=== PATIENT | female | born 1975 | race Caucasian/White ===

== ENCOUNTER 2020-09-21 10:41 | Inpatient (IN) | payer BC ==
[~2020-09-21] VITALS: Ht 162.6 cm; Wt 99.7 kg
--- NOTE | 2020-09-21 10:54 | PHYS DOC ---
Past Medical History Past Medical History Hypertension and hypothyroidism Past Surgical History: No Surgical History Smoking Status: Never Smoker Alcohol Use: Rarely Drug Use: None General Adult EDM: Chief Complaint: NEURO SYMPTOMS/DEFICITS HPI: HPI: This is a pleasant 45-year-old female who presents emergency department today with left sided weakness which started about 5 months ago. It has been progressively worse. Over the past 24 hours she has had worsening clumsiness. Location brain. Duration constant. No alleviating or exacerbating factors. Not associated with speech disturbances. She denies any fevers or chills. She denies chest pain or shortness of breath. She denies vision changes. Review of systems negative for chest pain shortness of breath vomiting fevers chills. All other review of systems negative ED course/MDM: 45-year-old female with chronic symptoms of focal neurologic deficit. Imaging ordered. EKG obtained. tPA not indicated based on timeframe. Last known well greater than [address] head unremarkable for acute findings. CT angiogram shows no acute intracranial findings. Suspected atherosclerotic plaque of the proximal right subclavian artery. No LVO. CBC chemistry and urine analysis unremarkable for acute findings. Will admit the patient for neurology consultation and further evaluation and care. Heart Score: C/O Chest Pain: No Risk Factors: Risk Factors: DM, Current or recent (<one month) smoker, HTN, HLP, family history of CAD, obesity. Risk Scores: Score 0 - 3: 2.5% MACE over next 6 weeks - Discharge Home Score 4 - 6: 20.3% MACE over next 6 weeks - Admit for Clinical Observation Score 7 - 10: 72.7% MACE over next 6 weeks - Early Invasive Strategies Physical Exam: PE: Constitutional: Well developed, well nourished, no acute distress, non-toxic appearance. [] HENT: Normocephalic, atraumatic, bilateral external ears normal, oropharynx moist, no oral exudates, nose normal. [] Eyes: PERRLA, EOMI, conjunctiva normal, no discharge. [] Neck: Normal range of motion, no tenderness, supple, no stridor. [] Cardiovascular:Heart rate regular rhythm, no murmur [] Lungs & Thorax: Bilateral breath sounds clear to auscultation [] Abdomen: Bowel sounds normal, soft, no tenderness, no masses, no pulsatile masses. [] Skin: Warm, dry, no erythema, no rash. [] Back: No tenderness, no CVA tenderness. [] Extremities: No tenderness, no cyanosis, no clubbing, ROM intact, no edema. [] Neurologic: Mental status: Awake oriented and alert x3 Cranial nerves: Extraocular movements intact, eyebrows eliana bilaterally, smile symmetric, uvula elevation nl, shoulder shrug intact bilaterally, tongue protrusion normal. Symmetric facial smile. Clear speech. Normal aezynl-ly-hesl. Sensation: equal and normal in all extremities Strength: 4 out of 5 strength in the left upper and left lower extremity. 5 out of 5 strength in the right upper and right lower extremity. Patient does not have drift in the upper extremities but is appreciably weak on exam. More in the extension and flexion at the elbow. The lower extremity on the left has drift and touches the bed. Psychologic: Affect normal, judgement normal, mood normal. [] EKG: EKG: EKG reviewed by myself shows sinus rhythm with a regular rate. ST segments congruent. Not suggestive of acute ischemia. [] Radiology/Procedures: Radiology/Procedures: [] Course & Med Decision Making: Course & Med Decision Making Pertinent Labs and Imaging studies reviewed. (See chart for details) [] Dragon Disclaimer: Dragon Disclaimer: This electronic medical record was generated, in whole or in part, using a voice recognition dictation system. Departure Departure Impression: Primary Impression: Left-sided weakness Disposition: ADMITTED INPATIENT Admitting Physician: DAVID Condition: STABLE NIHSS Stroke Scale NIH Stroke Scale: NIH Stroke Scale Response (Comments) Value Level of Consciousness: 0 Alert/Responsive 0 LOC Questions: 0 Answers both correctly 0 LOC Commands: 0 Performs both tasks 0 Best Gaze: 0 Normal 0 Visual: 0 No visual loss 0 Facial Palsy: 0 Normal, symmetrical 0 Motor - Left Arm 0 No drift 0 Motor - Right Arm 0 No drift 0 Motor - Left Leg 2 Some effort 2 Motor: Right Leg 0 No drift 0 Limb Ataxia: 0 Absent 0 Sensory: 0 No loss 0 Best Language: 0 Normal 0 Dysathria: 0 Normal 0 Extinction and Inattention: 0 Normal (At approximately 1045am) 0 Total 2 ANGELES GARDUNO MD September 21, 2020 10:53
--- NOTE | 2020-09-21 11:25 | EKG ---
[facility] [address] [place] [address] Test Date: 2020-09-21 Test Time: 11:10:20 Pat Name: FARIBA ROTH Department: Room: Gender: F [employer]: : 1975 Requested By: ANGELES GARDUNO Order Number: [id number] Reading MD: Measurements Intervals [place] Rate: 70 P: -2 SC: 142 QRS: 51 QRSD: 112 T: 12 QT: 398 QTc: 433 Interpretive Statements SINUS RHYTHM NORMAL ECG RI6.01 No previous ECG available for comparison
[2020-09-21 11:40] LABS: BASO % 1 % (0-3); EOS # 0.1 x10^3/uL (0.0-0.7); EOS % 1 % (0-3); HEMATOCRIT 36.9 % (36.0-47.0); HEMOGLOBIN 12.4 g/dL (12.0-15.5); LYMPH # 1.1 x10^3/uL (1.0-4.8); LYMPH % 17 % (24-48); MEAN CORPUSCULAR HEMOGLOBIN 30 pg (25-35); MEAN CORPUSCULAR HGB CONC 34 g/dL (31-37); MEAN CORPUSCULAR VOLUME 89 fL (79-100); MONO # 0.4 x10^3/uL (0.0-1.1); MONO % 7 % (0-9); NEUT % 75 % (31-73); PLATELET COUNT 269 x10^3/uL (140-400); RED BLOOD COUNT 4.15 x10^6/uL (3.50-5.40); RED CELL DISTRIBUTION WIDTH 13.4 % (11.5-14.5); WHITE BLOOD COUNT 6.6 x10^3/uL (4.0-11.0)
[2020-09-21 11:47] LABS: CALCIUM 8.4 mg/dL (8.5-10.1); CREATININE 0.7 mg/dL (0.6-1.0); GFR 90.5; POTASSIUM 4.5 mmol/L (3.5-5.1)
[2020-09-21 11:53] LABS: ALBUMIN 3.6 g/dL (3.4-5.0); ALBUMIN/GLOBULIN RATIO 1.3 (1.0-1.7); TOTAL BILIRUBIN 0.2 mg/dL (0.2-1.0); TOTAL PROTEIN 6.3 g/dL (6.4-8.2)
[2020-09-21] MEDS ORDERED: IOHEXOL 350 MG/ML 100 ML VIAL. IV ONE (12:15)
[2020-09-21] MEDS ORDERED: CONTRAST GIVEN. MC PRN (12:15)
--- NOTE | 2020-09-21 12:28 | RAD ---
Exam Date: 09/21/2020 11:[address] HEAD/BRAIN WO Indication: Reason: WEAKNESS / Spl. Instructions: / History: TECHNIQUE: Head CT was performed without intravenous contrast. One or more of the following dose re duction techniques were utilized: *Automated exposure control (AEC) *Adjustment of mA and/or kV according to patient size *Use of iterative reconstruction technique *CT scan done according to ALARA, or ALARA/IMAGE GENTLY FINDINGS: The ventricles and sulci are normal for the patient's stated age. There is no evidence of acute int racranial hemorrhage, extra-axial collection, mass effect, midline shift, or acute territorial infarc t. No lesion of the skull base or the calvarium is seen. The visualized paranasal sinuses, mastoid ai r cells and orbits are normal in appearance. IMPRESSION: No evidence for acute intracranial abnormality. Electronically signed by: Josef Cleaning MD (09/21/2020 12:26 PM) [facility]
--- NOTE | 2020-09-21 12:42 | RAD ---
EXAM: CT angiogram of the head and neck with intravenous contrast. HISTORY: Weakness. TECHNIQUE: Computed tomographic images the head and neck were obtained following the administration o f contrast. 3-dimensional images were obtained. *One or more of the following individualized dose reduction techniques were utilized for this examina tion: 1. Automated exposure control. 2. Adjustment of the mA and/or kV according to patient size. 3. Use of iterative reconstruction technique. COMPARISON: Noncontrast head CT obtained on the same date. FINDINGS: The aortic arch is normal in caliber. There is a standard arch branching pattern. There is suspected noncalcified atherosclerotic plaque at the origin of the right subclavian artery, resulting in 50-69 percent stenosis proximal to the origin of the right vertebral artery. There is also noncal cified atherosclerotic plaque involving the carotid bifurcations, with less than 50 percent stenosis. The vertebral arteries are widely patent and codominant. The basilar artery is widely patent. The in ternal carotid arteries are widely patent. The anterior communicating artery is patent. The posterior communicating arteries are likely developmentally absent or hypoplastic. There is no aneurysm or vas cular malformation. There is no suspicious enhancing lesion. There is no mass effect or midline shift. There is no hydrocephalus. The sarah-white matter differenti al pattern is intact. The orbits are unremarkable. There is a tiny right maxillary sinus mucous reten tion cyst and minimal maxillary sinus mucosal thickening. The mastoid air cells are clear. There are degenerative changes involving the cervical spine. This results in mild right foraminal stenosis at C 4-C5. There are prominent right paratracheal lymph nodes, partially included on the [id number]. Th power are likely physiologic or reactive. IMPRESSION: 1. No acute intracranial finding. Note is made that MRI is more sensitive for acute infarction. 2. Suspected atherosclerotic plaque resulting in 50-69 percent stenosis of the proximal right subclav dominique artery. No additional hemodynamically significant stenosis is seen involving the neck or intracra nial arteries. PQRS Compliance Statement - Stenosis calculations for CT, MR and conventional angiography are based u prince measurement of the distal ICA diameter in accordance with the NASCET methodology. Stenosis calcu lations for carotid ultrasound studies are derived from validated velocity criteria which are known t o correlate with the NASCET methodology. Electronically signed by: Terra Sharma MD (09/21/2020 12:39 PM) [id number]
[2020-09-21 13:08] LABS: BILIRUBIN,URINE NEGATIVE (NEG); CLARITY,URINE CLEAR; COLOR,URINE YELLOW; NITRITE,URINE NEGATIVE (NEG); PH,URINE 6.5 (<5.0-8.0); PROTEIN,URINE NEGATIVE (NEG-TRACE); UROBILINOGEN,URINE 0.2 mg/dL (0.2 mg/dL)
[2020-09-21 13:23] LABS: BACTERIA,URINE 0 /HPF (0-FEW); RBC,URINE 0 /HPF (0-2); WBC,URINE 0 /HPF (0-4)
--- NOTE | 2020-09-21 14:28 | PDOC1 ---
History and Physical Date of Admission Date of Admission DATE: 09/21/20 TIME: 14:28 Identification/Chief Complaint Chief Complaint left sided weakness History of Present Illness History of Present Illness Works as an [employer], HER FRIENDS insisted that she see a neurologist due to following symptoms for several weeks seen in ER with hypertension, left sided weakness, PROGRESSIVE symptoms, now having difficulty climbing steps Imaging ordered. EKG obtained. tPA not indicated based on timeframe. Last known well greater than 24 hours. No acute intracranial finding. Note is made that MRI is more sensitive Past Medical History Past Medical History Past Medical History Past Medical History Past Medical History Hypertension and hypothyroidism, obesity Past Surgical History: No Surgical History Smoking Status: Never Smoker Alcohol Use: Rarely Drug Use: None fhx obesity Cardiovascular: HTN Pulmonary: No pertinent hx Heme/Onc: No pertinent hx Hepatobiliary: No pertinent hx Psych: No pertinent hx, Anxiety Renal/: No pertinent hx Endocrine: No pertinent hx Dermatology: No pertinent hx Family History Family History: Hypertension Social History Smoke: No ALCOHOL: rare Drugs: None Current Medications Current Medications Current Medications Iohexol (Omnipaque 350 Mg/ml) 75 ml 1X ONCE IV Last administered on 09/21/20at 12:11; Start 09/21/20 at 12:15; Stop 09/21/20 at 12:16; Status DC Info (CONTRAST GIVEN -- Rx MONITORING) 1 each PRN DAILY PRN MC SEE COMMENTS; Start 09/21/20 at 12:15; Stop 09/23/20 at 12:14 Allergies Allergies: Coded Allergies: No Known Drug Allergies (Unverified , 09/21/20) ROS Review of System 14 pt ros otherwise neg General: YES: Fatigue; No: Chills, Night Sweats, Malaise, Appetite, Other PSYCHOLOGICAL ROS: No: Anxiety, Behavioral Disorder, Concentration difficultie, Decreased libido, Depression, Disorientation, Hallucinations, Hostility, Irritablity, Memory difficulties, Mood Swings, Obsessive thoughts, Physical abuse, Sexual abuse, Sleep disturbances, Suicidal ideation, Other Eyes: No Blurry vision, No Decreased vision, No Double vision, No Dry eyes, No Excessive tearing, No Eye Pain, No Itchy Eyes, No Loss of vision, No P hotophobia, No Scotomata, No Uses contacts, No Uses glasses, No Other HEENT: No: Heacaches, Visual Changes, Hearing change, Nasal congestion, Nasal discharge, Oral lesions, Sinus pain, Sore Throat, Epistaxis, Sneezing, Snoring, Tinnitus, Vertigo, Vocal changes, Other ALLERGY AND IMMUNOLOGY: No: Hives, Insect Bite Sensitivity, Itchy/Watery Eyes, Nasal Congestion, Post Nasal Drip, Seasonal Allergies, Other Hematological and Lymphatic: No: Bleeding Problems, Blood Clots, Blood Transfusions, Brusing, Night Sweats, Pallor, Swollen Lymph Nodes, Other ENDOCRINE: No: Breast Changes, Galactorrhea, Hair Pattern Changes, Hot Flashes, Malaise/lethargy, Mood Swings, Palpitations, Polydipsia/polyuria, Skin Changes, Temperature Intolerance, Unexpected Weight Changes, Other Breast: No New/Changing Breast Lumps, No Nipple changes, No Nipple discharge, No Other Respiratory: No: Cough, Hemoptysis, Orthopnea, Pleuritic Pain, Shortness of breath, SOB with excertion, Sputum Changes, Stridor, Tachypnea, Wheezing, Other Cardiovascular: No Chest Pain, No Palpitations, No Orthopnea, No Paroxysmal Noc. Dyspnea, No Edema, No Lt Headedness, No Other Gastrointestinal: No Nausea, No Vomiting, No Abdominal Pain, No Diarrhea, No Constipation, No Melena, No Hematochezia, No Other Genitourinary: No Dysuria, No Frequency, No Incontinence, No Hematuria, No Retention, No Discharge, No Urgency, No Pain, No Flank Pain, No Other, No , No , No , No , No , No , No Musculoskeletal: Yes Gait Disturbance, Yes Joint Stiffness, Yes Muscular Weakness; No Joint Pain, No Joint Swelling, No Muscle Pain, No Pain In:, No Swelling In:, No Other Neurological: Yes Gait Disturbance, Yes Impaired Coord/balance, Yes N umbness/Tingling, Yes Weakness Skin: No Dry Skin, No Eczema, No Hair Changes, No Lumps, No Mole Changes, No Mottling, No Nail Changes, No Pruritus, No Rash, No Skin Lesion Changes, No Other, No Acne Physical Exam General: Alert, Oriented X3, Cooperative, No acute distress HEENT: Atraumatic, PERRLA, EOMI, Mucous membr. moist/pink Lungs: Clear to auscultation, Normal air movement Heart: S1S2, RRR, no gallops, no murmurs, no jug vein distention Cardiovascular: S1, S2 Breasts: Not examined Abdomen: Normal bowel sounds, Soft, No tenderness, No masses Rectal Exam: not examined, deferred PELVIC: Examination not indicated Extremities: No cyanosis, No edema Skin: No significant lesion Neuro: Normal speech, Sensation intact, Cranial nerves 3-12 NL Psych/Mental Status: Mental status NL, Mood NL Vitals Vitals Vital Signs Date Time Temp Pulse Resp B/P (MAP) Pulse Ox O2 Delivery O2 Flow Rate FiO2 09/21/20 10:44 98.9 81 18 189/94 (125) 98 Room Air 98.9 Labs Labs Laboratory Tests Test 09/21/20 11:15 09/21/20 12:48 09/21/20 13:01 White Blood Count 6.6 x10^3/uL (4.0-11.0) Red Blood Count 4.15 x10^6/uL (3.50-5.40) Hemoglobin 12.4 g/dL (12.0-15.5) Hematocrit 36.9 % (36.0-47.0) Mean Corpuscular Volume 89 fL (79-100) Mean Corpuscular Hemoglobin 30 pg (25-35) Mean Corpuscular Hemoglobin Concent 34 g/dL (31-37) Red Cell Distribution Width 13.4 % (11.5-14.5) Platelet Count 269 x10^3/uL (140-400) Neutrophils (%) (Auto) 75 % (31-73) Lymphocytes (%) (Auto) 17 % (24-48) Monocytes (%) (Auto) 7 % (0-9) Eosinophils (%) (Auto) 1 % (0-3) Basophils (%) (Auto) 1 % (0-3) Neutrophils # (Auto) 5.0 x10^3/uL (1.8-7.7) Lymphocytes # (Auto) 1.1 x10^3/uL (1.0-4.8) Monocytes # (Auto) 0.4 x10^3/uL (0.0-1.1) Eosinophils # (Auto) 0.1 x10^3/uL (0.0-0.7) Basophils # (Auto) 0.0 x10^3/uL (0.0-0.2) Sodium Level 143 mmol/L (136-145) Potassium Level 4.5 mmol/L (3.5-5.1) Chloride Level 108 mmol/L (98-107) Carbon Dioxide Level 27 mmol/L (21-32) Anion Gap 8 (6-14) Blood Urea Nitrogen 14 mg/dL (7-20) Creatinine 0.7 mg/dL (0.6-1.0) Estimated GFR (Cockcroft-Gault) 90.5 BUN/Creatinine Ratio 20 (6-20) Glucose Level 97 mg/dL (70-99) Calcium Level 8.4 mg/dL (8.5-10.1) Total Bilirubin 0.2 mg/dL (0.2-1.0) Aspartate Amino Transf (AST/SGOT) 16 U/L (15-37) Alanine Aminotransferase (ALT/SGPT) 30 U/L (14-59) Alkaline Phosphatase 94 U/L (46-116) Troponin I Quantitative < 0.017 ng/mL (0.000-0.055) Total Protein 6.3 g/dL (6.4-8.2) Albumin 3.6 g/dL (3.4-5.0) Albumin/Globulin Ratio 1.3 (1.0-1.7) Lipase 96 U/L (73-393) Urine Collection Type Unknown Urine Color Yellow Urine Clarity Clear Urine pH 6.5 (<5.0-8.0) Urine Specific [place] >=1.030 (1.000-1.030) Urine Protein Negative mg/dL (NEG-TRACE) Urine Glucose (UA) Negative mg/dL (NEG) Urine Ketones (Stick) Negative mg/dL (NEG) Urine Blood Negative (NEG) Urine Nitrite Negative (NEG) Urine Bilirubin Negative (NEG) Urine Urobilinogen Dipstick 0.2 mg/dL (0.2 mg/dL) Urine Leukocyte Esterase Negative (NEG) Urine RBC 0 /HPF (0-2) Urine WBC 0 /HPF (0-4) Urine Squamous Epithelial Cells Few /LPF Urine Bacteria 0 /HPF (0-FEW) Bedside Urine HCG, Qualitative Hcg negative (Negative) Laboratory Tests Test 09/21/20 11:15 09/21/20 12:48 09/21/20 13:01 White Blood Count 6.6 x10^3/uL (4.0-11.0) Red Blood Count 4.15 x10^6/uL (3.50-5.40) Hemoglobin 12.4 g/dL (12.0-15.5) Hematocrit 36.9 % (36.0-47.0) Mean Corpuscular Volume 89 fL (79-100) Mean Corpuscular Hemoglobin 30 pg (25-35) Mean Corpuscular Hemoglobin Concent 34 g/dL (31-37) Red Cell Distribution Width 13.4 % (11.5-14.5) Platelet Count 269 x10^3/uL (140-400) Neutrophils (%) (Auto) 75 % (31-73) Lymphocytes (%) (Auto) 17 % (24-48) Monocytes (%) (Auto) 7 % (0-9) Eosinophils (%) (Auto) 1 % (0-3) Basophils (%) (Auto) 1 % (0-3) Neutrophils # (Auto) 5.0 x10^3/uL (1.8-7.7) Lymphocytes # (Auto) 1.1 x10^3/uL (1.0-4.8) Monocytes # (Auto) 0.4 x10^3/uL (0.0-1.1) Eosinophils # (Auto) 0.1 x10^3/uL (0.0-0.7) Basophils # (Auto) 0.0 x10^3/uL (0.0-0.2) Sodium Level 143 mmol/L (136-145) Potassium Level 4.5 mmol/L (3.5-5.1) Chloride Level 108 mmol/L (98-107) Carbon Dioxide Level 27 mmol/L (21-32) Anion Gap 8 (6-14) Blood Urea Nitrogen 14 mg/dL (7-20) Creatinine 0.7 mg/dL (0.6-1.0) Estimated GFR (Cockcroft-Gault) 90.5 BUN/Creatinine Ratio 20 (6-20) Glucose Level 97 mg/dL (70-99) Calcium Level 8.4 mg/dL (8.5-10.1) Total Bilirubin 0.2 mg/dL (0.2-1.0) Aspartate Amino Transf (AST/SGOT) 16 U/L (15-37) Alanine Aminotransferase (ALT/SGPT) 30 U/L (14-59) Alkaline Phosphatase 94 U/L (46-116) Troponin I Quantitative < 0.017 ng/mL (0.000-0.055) Total Protein 6.3 g/dL (6.4-8.2) Albumin 3.6 g/dL (3.4-5.0) Albumin/Globulin Ratio 1.3 (1.0-1.7) Lipase 96 U/L (73-393) Urine Collection Type Unknown Urine Color Yellow Urine Clarity Clear Urine pH 6.5 (<5.0-8.0) Urine Specific [place] >=1.030 (1.000-1.030) Urine Protein Negative mg/dL (NEG-TRACE) Urine Glucose (UA) Negative mg/dL (NEG) Urine Ketones (Stick) Negative mg/dL (NEG) Urine Blood Negative (NEG) Urine Nitrite Negative (NEG) Urine Bilirubin Negative (NEG) Urine Urobilinogen Dipstick 0.2 mg/dL (0.2 mg/dL) Urine Leukocyte Esterase Negative (NEG) Urine RBC 0 /HPF (0-2) Urine WBC 0 /HPF (0-4) Urine Squamous Epithelial Cells Few /LPF Urine Bacteria 0 /HPF (0-FEW) Bedside Urine HCG, Qualitative Hcg negative (Negative) Images Images PATIENT: FARIBA ROTH CACCOUNT: [id number] : 1975 LOCATION: ER AGE: 45 SEX: F EXAM STATUS: REG ER ORD. PHYSICIAN: ANGELES GARDUNO MD REASON: WEAKNESS PROCEDURE: CT ANGIOGRAPHY HEAD AND NECK EXAM: CT angiogram of the head and neck with intravenous contrast. HISTORY: Weakness. TECHNIQUE: Computed tomographic images the head and neck were obtained following the administration of contrast. 3-dimensional images were obtained. *One or more of the following individualized dose reduction techniques were utilized for this examination: 1. Automated exposure control. 2. Adjustment of the mA and/or kV according to patient size. 3. Use of iterative reconstruction technique. COMPARISON: Noncontrast head CT obtained on the same date. FINDINGS: The aortic arch is normal in caliber. There is a standard arch branching pattern. There is suspected noncalcified atherosclerotic plaque at the origin of the right subclavian artery, resulting in 50-69 percent stenosis proximal to the origin of the right vertebral artery. There is also noncalcified atherosclerotic plaque involving the carotid bifurcations, with less than 50 percent stenosis. The vertebral arteries are widely patent and codominant. The basilar artery is widely patent. The internal carotid arteries are widely patent. The anterior communicating artery is patent. The posterior communicating arteries are likely developmentally absent or hypoplastic. There is no aneurysm or vascular malformation. There is no suspicious enhancing lesion. There is no mass effect or midline shift. There is no hydrocephalus. The sarah- white matter differential pattern is intact. The orbits are unremarkable. There is a tiny right maxillary sinus mucous retention cyst and minimal maxillary sinus mucosal thickening. The mastoid air cells are clear. There are degenerative changes involving the cervical spine. This results in mild right foraminal stenosis at C4-C5. There are prominent right paratracheal lymph nodes, partially included on the [id number]. These are likely physiologic or reactive. IMPRESSION: 1. No acute intracranial finding. Note is made that MRI is more sensitive for acute infarction. 2. Suspected atherosclerotic plaque resulting in 50-69 percent stenosis of the proximal right subclavian artery. No additional hemodynamically significant sten osis is seen involving the neck or intracranial arteries. PQRS Compliance Statement - Stenosis calculations for CT, MR and conventional angiography are based upon measurement of the distal ICA diameter in accordance with the NASCET methodology. Stenosis calculations for carotid ultrasound studies are derived from validated velocity criteria which are known to correlate with the NASCET methodology. Electronically signed by: Terra Marin MD (09/21/2020 12:39 PM) [id number] DICTATED and SIGNED BY: TERRA MARIN MD DATE: 09/21/20 [id number] VTE Prophylaxis Ordered VTE Prophylaxis Devices: Yes VTE Pharmacological Prophylaxi: Yes Assessment/Plan Assessment/Plan MPRESSION: left side weakness , concerning for CVA , vs conversion reaction No acute intracranial finding. Note is made that MRI is more sensitive for acute infarction. Suspected atherosclerotic plaque resulting in 50-69 percent stenosis of the proximal right subclavian artery. No additional hemodynamically significant stenosis is seen involving the neck or intracranial arteries. hypertension PLAN ADMIT NEUROCHECKS Q 4 HRS CVC BED Neurology consult MRI HEAD DVT PROPHYLAXIS PT/OT BEGIN NORVASC 5 MG PO DAILY FLP d/w er DR Justifications for Admission Other Justification NATHALIA HUNTER MD September 21, 2020 14:28
--- NOTE | 2020-09-21 16:29 | PDOC2 ---
NEUROLOGY CONSULT Date of Service DOS: DATE: 09/21/20 TIME: 16:23 Reason for Consult Reason for Consult: Left-sided weakness Referring Physician Referring Physician: Dr. Mathur Source Source: Caregiver (), Chart review, Patient History of Present Illness History of Present Illness The patient is a 45-year-old right-handed female who complains of left-sided weakness which started about 5 months ago. She initially noticed some extension of the fourth and fifth digits of the left hand. She also had trouble with walking using the left leg. This has progressed to increased stiffness of the left-sided extremities. The face is not involved. Symptoms grew worse in the last couple days, so she decided to come to the emergency department. She has an appointment with a [facility] neurologist scheduled for October. There is no history of stroke, seizure, or head injury. She is under some stress, she just completed nursing school. 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 Full 14-point review of systems is negative. Physical Exam Physical Examination General: Well-developed, well-nourished white female in no acute distress HEENT: Normocephalic andatraumatic. Temporal arteriespulsatile and nontender. Neck: Supple without bruit, no meningismus Musculoskeletal: Stability:see neurologic. Gait exam:see neurologic. Tone:see neurologic.Str ength:see neurologic. Neurological: Mental Status:intact, orientation, memory, attention span/concentration, language, fund of knowledge normal. Cranial Nerves:Pupils equal and reactive to light, extraocular movements areintact, visual li are full to confrontation. Facial sensation is normal. There is no facial asymmetry. Vestibulo-ocular reflex is intact. Palate elevates and tongue protrudes in midline. All other cranial related problems are negative except as mentioned before.Reflexes:2+ and symmetric with flexor plantar responses. Motor:5/5 strength with normal bulk. There is some increased tone in the left arm and l eg, but with distraction, the tone becomes normal. There is no abnormal posturing like dystonia. Coordination:Finger-nose finger and [id number] testing are normal. Rapid alternating movements and fine finger movements are intact. Gait:Takes slow, wide-based steps. Sensory:Normal pinprick, vibration, light touch, proprioception. Vitals VITALS Vital Signs Date Time Temp Pulse Resp B/P (MAP) Pulse Ox O2 Delivery O2 Flow Rate FiO2 09/21/20 10:44 98.9 81 18 189/94 (125) 98 Room Air 98.9 Labs Labs Laboratory Tests Test 09/21/20 11:15 09/21/20 12:48 09/21/20 13:01 White Blood Count 6.6 x10^3/uL (4.0-11.0) Red Blood Count 4.15 x10^6/uL (3.50-5.40) Hemoglobin 12.4 g/dL (12.0-15.5) Hematocrit 36.9 % (36.0-47.0) Mean Corpuscular Volume 89 fL (79-100) Mean Corpuscular Hemoglobin 30 pg (25-35) Mean Corpuscular Hemoglobin Concent 34 g/dL (31-37) Red Cell Distribution Width 13.4 % (11.5-14.5) Platelet Count 269 x10^3/uL (140-400) Neutrophils (%) (Auto) 75 % (31-73) Lymphocytes (%) (Auto) 17 % (24-48) Monocytes (%) (Auto) 7 % (0-9) Eosinophils (%) (Auto) 1 % (0-3) Basophils (%) (Auto) 1 % (0-3) Neutrophils # (Auto) 5.0 x10^3/uL (1.8-7.7) Lymphocytes # (Auto) 1.1 x10^3/uL (1.0-4.8) Monocytes # (Auto) 0.4 x10^3/uL (0.0-1.1) Eosinophils # (Auto) 0.1 x10^3/uL (0.0-0.7) Basophils # (Auto) 0.0 x10^3/uL (0.0-0.2) Sodium Level 143 mmol/L (136-145) Potassium Level 4.5 mmol/L (3.5-5.1) Chloride Level 108 mmol/L (98-107) Carbon Dioxide Level 27 mmol/L (21-32) Anion Gap 8 (6-14) Blood Urea Nitrogen 14 mg/dL (7-20) Creatinine 0.7 mg/dL (0.6-1.0) Estimated GFR (Cockcroft-Gault) 90.5 BUN/Creatinine Ratio 20 (6-20) Glucose Level 97 mg/dL (70-99) Calcium Level 8.4 mg/dL (8.5-10.1) Total Bilirubin 0.2 mg/dL (0.2-1.0) Aspartate Amino Transf (AST/SGOT) 16 U/L (15-37) Alanine Aminotransferase (ALT/SGPT) 30 U/L (14-59) Alkaline Phosphatase 94 U/L (46-116) Troponin I Quantitative < 0.017 ng/mL (0.000-0.055) Total Protein 6.3 g/dL (6.4-8.2) Albumin 3.6 g/dL (3.4-5.0) Albumin/Globulin Ratio 1.3 (1.0-1.7) Lipase 96 U/L (73-393) Urine Collection Type Unknown Urine Color Yellow Urine Clarity Clear Urine pH 6.5 (<5.0-8.0) Urine Specific [place] >=1.030 (1.000-1.030) Urine Protein Negative mg/dL (NEG-TRACE) Urine Glucose (UA) Negative mg/dL (NEG) Urine Ketones (Stick) Negative mg/dL (NEG) Urine Blood Negative (NEG) Urine Nitrite Negative (NEG) Urine Bilirubin Negative (NEG) Urine Urobilinogen Dipstick 0.2 mg/dL (0.2 mg/dL) Urine Leukocyte Esterase Negative (NEG) Urine RBC 0 /HPF (0-2) Urine WBC 0 /HPF (0-4) Urine Squamous Epithelial Cells Few /LPF Urine Bacteria 0 /HPF (0-FEW) Bedside Urine HCG, Qualitative Hcg negative (Negative) Laboratory Tests Test 09/21/20 11:15 09/21/20 12:48 09/21/20 13:01 White Blood Count 6.6 x10^3/uL (4.0-11.0) Red Blood Count 4.15 x10^6/uL (3.50-5.40) Hemoglobin 12.4 g/dL (12.0-15.5) Hematocrit 36.9 % (36.0-47.0) Mean Corpuscular Volume 89 fL (79-100) Mean Corpuscular Hemoglobin 30 pg (25-35) Mean Corpuscular Hemoglobin Concent 34 g/dL (31-37) Red Cell Distribution Width 13.4 % (11.5-14.5) Platelet Count 269 x10^3/uL (140-400) Neutrophils (%) (Auto) 75 % (31-73) Lymphocytes (%) (Auto) 17 % (24-48) Monocytes (%) (Auto) 7 % (0-9) Eosinophils (%) (Auto) 1 % (0-3) Basophils (%) (Auto) 1 % (0-3) Neutrophils # (Auto) 5.0 x10^3/uL (1.8-7.7) Lymphocytes # (Auto) 1.1 x10^3/uL (1.0-4.8) Monocytes # (Auto) 0.4 x10^3/uL (0.0-1.1) Eosinophils # (Auto) 0.1 x10^3/uL (0.0-0.7) Basophils # (Auto) 0.0 x10^3/uL (0.0-0.2) Sodium Level 143 mmol/L (136-145) Potassium Level 4.5 mmol/L (3.5-5.1) Chloride Level 108 mmol/L (98-107) Carbon Dioxide Level 27 mmol/L (21-32) Anion Gap 8 (6-14) Blood Urea Nitrogen 14 mg/dL (7-20) Creatinine 0.7 mg/dL (0.6-1.0) Estimated GFR (Cockcroft-Gault) 90.5 BUN/Creatinine Ratio 20 (6-20) Glucose Level 97 mg/dL (70-99) Calcium Level 8.4 mg/dL (8.5-10.1) Total Bilirubin 0.2 mg/dL (0.2-1.0) Aspartate Amino Transf (AST/SGOT) 16 U/L (15-37) Alanine Aminotransferase (ALT/SGPT) 30 U/L (14-59) Alkaline Phosphatase 94 U/L (46-116) Troponin I Quantitative < 0.017 ng/mL (0.000-0.055) Total Protein 6.3 g/dL (6.4-8.2) Albumin 3.6 g/dL (3.4-5.0) Albumin/Globulin Ratio 1.3 (1.0-1.7) Lipase 96 U/L (73-393) Urine Collection Type Unknown Urine Color Yellow Urine Clarity Clear Urine pH 6.5 (<5.0-8.0) Urine Specific [place] >=1.030 (1.000-1.030) Urine Protein Negative mg/dL (NEG-TRACE) Urine Glucose (UA) Negative mg/dL (NEG) Urine Ketones (Stick) Negative mg/dL (NEG) Urine Blood Negative (NEG) Urine Nitrite Negative (NEG) Urine Bilirubin Negative (NEG) Urine Urobilinogen Dipstick 0.2 mg/dL (0.2 mg/dL) Urine Leukocyte Esterase Negative (NEG) Urine RBC 0 /HPF (0-2) Urine WBC 0 /HPF (0-4) Urine Squamous Epithelial Cells Few /LPF Urine Bacteria 0 /HPF (0-FEW) Bedside Urine HCG, Qualitative Hcg negative (Negative) Images Images CT HEAD/BRAIN WO Indication: Reason: WEAKNESS / Spl. Instructions: / History: TECHNIQUE: Head CT was performed without intravenous contrast. One or more of the following dose reduction techniques were utilized: *Automated exposure control (AEC) *Adjustment of mA and/or kV according to patient size *Use of iterative reconstruction technique *CT scan done according to ALARA, or ALARA/IMAGE GENTLY FINDINGS: The ventricles and sulci are normal for the patient's stated age. There is no evidence of acute intracranial hemorrhage, extra-axial collection, mass effect, midline shift, or acute territorial infarct. No lesion of the skull base or the calvarium is seen. The visualized paranasal sinuses, mastoid air cells and orbits are normal in appearance. IMPRESSION: No evidence for acute intracranial abnormality. CT angiogram of the head and neck with intravenous contrast. HISTORY: Weakness. TECHNIQUE: Computed tomographic images the head and neck were obtained following the administration of contrast. 3-dimensional images were obtained. *One or more of the following individualized dose reduction techniques were utilized for this examination: 1. Automated exposure control. 2. Adjustment of the mA and/or kV according to patient size. 3. Use of iterative reconstruction technique. COMPARISON: Noncontrast head CT obtained on the same date. FINDINGS: The aortic arch is normal in caliber. There is a standard arch branching pattern. There is suspected noncalcified atherosclerotic plaque at the origin of the right subclavian artery, resulting in 50-69 percent stenosis proximal to the origin of the right vertebral artery. There is also noncalcified atherosclerotic plaque involving the carotid bifurcations, with less than 50 percent stenosis. The vertebral arteries are widely patent and codominant. The basilar artery is widely patent. The internal carotid arteries are widely patent. The anterior communicating artery is patent. The posterior communicating arteries are likely developmentally absent or hypoplastic. There is no aneurysm or vascular malformation. There is no suspicious enhancing lesion. There is no mass effect or midline shift. There is no hydrocephalus. The sarah- white matter differential pattern is intact. The orbits are unremarkable. There is a tiny right maxillary sinus mucous retention cyst and minimal maxillary sinus mucosal thickening. The mastoid air cells are clear. There are degenerative changes involving the cervical spine. This results in mild right foraminal stenosis at C4-C5. There are prominent right paratracheal lymph nodes, partially included on the [id number]. These are likely physiologic or reactive. IMPRESSION: 1. No acute intracranial finding. Note is made that MRI is more sensitive for acute infarction. 2. Suspected atherosclerotic plaque resulting in 50-69 percent stenosis of the proximal right subclavian artery. No additional hemodynamically significant stenosis is seen involving the neck or intracranial arteries. Assessment/Plan Assessment/Plan Impression: Left-sided increased tone, strange gait, this could be dystonia, but much more likely, especially since increased tone disappears with distraction, this is a conversion reaction. Patient was open to the possibility of stress causing her symptoms. Recommendations: MRI of the brain Hold on additional stroke studies unless MRI is abnormal. I highly doubt this will be the case especially since CT and CTA are normal in this patient with months of neurological symptoms Rehabilitation modalities Thank you for letting me help with the patient's care. KELLEE ROSAS MD September 21, 2020 16:29
[2020-09-21] MEDS: amLODIPine BESYLATE 5 MG TABLET PO SCH (16:45)
[2020-09-21 18:20] VITALS: BP 154/63
--- NOTE | 2020-09-21 19:33 | NUR ---
BEAU rodrigues called to floor stating that waqar Kumar MD stated that we no longer needed to do the NIH scale on the patient.
[2020-09-21] MEDS ORDERED: LEVO125T5 PO (20:58)
[2020-09-21] MEDS ORDERED: ATOM80CA PO (20:59)
[2020-09-21] MEDS ORDERED: ATEN100T PO (20:59)
--- NOTE | 2020-09-21 22:42 | NUR ---
Admit from ED prior to shift change. A/O x 4. 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 Reports difficulty using hands at times. 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 Moves all extremities without difficulty. Steady gait. Speech clear. Reviewed POC and orientated to room and call light. Resting in bed watching TV with call light at hand.
[2020-09-21 22:50] VITALS: BP 164/65
[2020-09-22 03:20] VITALS: BP 122/55
[2020-09-22 06:03] LABS: BASO % 1 % (0-3); EOS # 0.1 x10^3/uL (0.0-0.7); EOS % 1 % (0-3); HEMATOCRIT 35.2 % (36.0-47.0); HEMOGLOBIN 12.1 g/dL (12.0-15.5); LYMPH # 1.8 x10^3/uL (1.0-4.8); LYMPH % 26 % (24-48); MEAN CORPUSCULAR HEMOGLOBIN 31 pg (25-35); MEAN CORPUSCULAR HGB CONC 34 g/dL (31-37); MEAN CORPUSCULAR VOLUME 89 fL (79-100); MONO # 0.5 x10^3/uL (0.0-1.1); MONO % 7 % (0-9); NEUT # 4.5 x10^3/uL (1.8-7.7); NEUT % 66 % (31-73); PLATELET COUNT 262 x10^3/uL (140-400); RED BLOOD COUNT 3.95 x10^6/uL (3.50-5.40); RED CELL DISTRIBUTION WIDTH 13.5 % (11.5-14.5); WHITE BLOOD COUNT 6.8 x10^3/uL (4.0-11.0)
[2020-09-22 06:32] LABS: ALBUMIN 3.2 g/dL (3.4-5.0); ALBUMIN/GLOBULIN RATIO 1.1 (1.0-1.7); CALCIUM 8.2 mg/dL (8.5-10.1); CREATININE 0.7 mg/dL (0.6-1.0); GFR 90.5; POTASSIUM 3.8 mmol/L (3.5-5.1); TOTAL BILIRUBIN 0.4 mg/dL (0.2-1.0)
[2020-09-22 07:00] VITALS: BP 178/72
[2020-09-22] MEDS: amLODIPine BESYLATE 5 MG TABLET PO SCH (10:29)
[2020-09-22 11:00] VITALS: BP 167/81
--- NOTE | 2020-09-22 11:52 | NUR ---
SS following for discharge planning. SS reviewed pt chart and discussed with pt RN. Pt is from home with spouse and is currently on room air. PT/OT ordered. PT recommended home. Pt having Brain MRI today. Discharge plan is to home when medically ready. SS will continue to follow for discharge planning.
--- NOTE | 2020-09-22 12:55 | RAD ---
EXAM: Brain MRI without contrast. HISTORY: Dystonia. TECHNIQUE: Multiplanar, multisequence magnetic resonance imaging of the brain was performed without c ontrast. COMPARISON: CT dated 09/21/2020. FINDINGS: There is no restricted diffusion to suggest acute or subacute infarction. There is no susce ptibility effect to suggest hemorrhage. There is no mass effect or midline shift. There is no hydroce phalus. No suspicious white matter lesion is seen. The orbits are unremarkable. The paranasal sinuses and mastoid air cells are unremarkable. There are normal flow voids within the cerebral vessels. The re is no suspicious calvarial lesion. IMPRESSION: No acute intracranial finding. Electronically signed by: Terra Sharma MD (09/22/2020 12:53 PM) [id number]
[2020-09-22] MEDS ORDERED: AMLO-187 PO (13:37)
--- NOTE | 2020-09-22 13:40 | DISCH ---
DISCHARGE INSTRUCTIONS Condition on Discharge Condition on Discharge: Stable Activity After Discharge Activity Instructions for Disc: Resume previous activity, Activity as tolerated Driving Instructions after Dis: Do not drive today Diet after Discharge Diet after Discharge: Cardiac Checks after Discharge Checks after discharge: Check blood press - daily Contacting the DRInga after DC Call your doctor for: If your condition worsens Follow-Up Follow up with: PCP within 2 weeks og discharge Follow Up With: Neurology as needed ESTRELLA AVILES MD September 22, 2020 13:40
[2020-09-22] MEDS ORDERED: amLODIPine BESYLATE 5 MG TABLET PO ONE (13:45)
--- NOTE | 2020-09-22 14:01 | PDOC ---
PROGRESS NOTES Date of Service DATE: 09/22/20 TIME: 13:57 Assessment Problems Medical Problems: (1) Left-sided weakness Status: Acute Left-sided increased tone, strange gait, this could be dystonia, but much more likely, especially since increased tone disappears with distraction, this is a conversion reaction. Patient was open to the possibility of stress causing her symptoms. She says that she feels much better after resting in the hospital and getting a good meal Plan No additional stroke studies needed I reassured the patient and her that the normal MRI rules out anything bad like brain tumor, stroke, or multiple sclerosis. Patient was very pleased with this. Continue outpatient rehab for a couple months Follow-up with me or my nurse practitioner after the 2 months Okay for discharge today Fully discussed with the patient and her . Subjective Feels better Objective Vital Signs Date Time Temp Pulse Resp B/P (MAP) Pulse Ox O2 Delivery O2 Flow Rate FiO2 09/22/20 11:00 98.2 68 20 167/81 (109) 99 Room Air 98.2 Intake and Output 09/22/20 07:00 # Voids 2 PHYSICAL EXAM Physical Exam: Alert. Oriented to time, place and person. PERRL. EOMI. CN: no focal findings. Muscle tone: no longer has increased tone on the left Muscle strength: 5/5 DTR: 2+ Plantar reflex: Flexor Gait: A little stiff, takes slow, wide-based steps Sensory exam: no abnormal findings. No cerebellar signs elicited. Review of Relevant I have reviewed the following items alondra (where applicable) has been applied. Labs Laboratory Tests Test 09/21/20 11:15 09/21/20 12:48 09/21/20 13:01 09/22/20 04:48 White Blood Count 6.6 x10^3/uL (4.0-11.0) Red Blood Count 4.15 x10^6/uL (3.50-5.40) Hemoglobin 12.4 g/dL (12.0-15.5) Hematocrit 36.9 % (36.0-47.0) Mean Corpuscular Volume 89 fL (79-100) Mean Corpuscular Hemoglobin 30 pg (25-35) Mean Corpuscular Hemoglobin Concent 34 g/dL (31-37) Red Cell Distribution Width 13.4 % (11.5-14.5) Platelet Count 269 x10^3/uL (140-400) Neutrophils (%) (Auto) 75 % (31-73) Lymphocytes (%) (Auto) 17 % (24-48) Monocytes (%) (Auto) 7 % (0-9) Eosinophils (%) (Auto) 1 % (0-3) Basophils (%) (Auto) 1 % (0-3) Neutrophils # (Auto) 5.0 x10^3/uL (1.8-7.7) Lymphocytes # (Auto) 1.1 x10^3/uL (1.0-4.8) Monocytes # (Auto) 0.4 x10^3/uL (0.0-1.1) Eosinophils # (Auto) 0.1 x10^3/uL (0.0-0.7) Basophils # (Auto) 0.0 x10^3/uL (0.0-0.2) Sodium Level 143 mmol/L (136-145) 143 mmol/L (136-145) Potassium Level 4.5 mmol/L (3.5-5.1) 3.8 mmol/L (3.5-5.1) Chloride Level 108 mmol/L (98-107) 108 mmol/L (98-107) Carbon Dioxide Level 27 mmol/L (21-32) 25 mmol/L (21-32) Anion Gap 8 (6-14) 10 (6-14) Blood Urea Nitrogen 14 mg/dL (7-20) 11 mg/dL (7-20) Creatinine 0.7 mg/dL (0.6-1.0) 0.7 mg/dL (0.6-1.0) Estimated GFR (Cockcroft-Gault) 90.5 90.5 BUN/Creatinine Ratio 20 (6-20) 16 (6-20) Glucose Level 97 mg/dL (70-99) 82 mg/dL (70-99) Calcium Level 8.4 mg/dL (8.5-10.1) 8.2 mg/dL (8.5-10.1) Total Bilirubin 0.2 mg/dL (0.2-1.0) 0.4 mg/dL (0.2-1.0) Aspartate Amino Transf (AST/SGOT) 16 U/L (15-37) 13 U/L (15-37) Alanine Aminotransferase (ALT/SGPT) 30 U/L (14-59) 25 U/L (14-59) Alkaline Phosphatase 94 U/L (46-116) 87 U/L (46-116) Troponin I Quantitative < 0.017 ng/mL (0.000-0.055) Total Protein 6.3 g/dL (6.4-8.2) 6.0 g/dL (6.4-8.2) Albumin 3.6 g/dL (3.4-5.0) 3.2 g/dL (3.4-5.0) Albumin/Globulin Ratio 1.3 (1.0-1.7) 1.1 (1.0-1.7) Lipase 96 U/L (73-393) Urine Collection Type Unknown Urine Color Yellow Urine Clarity Clear Urine pH 6.5 (<5.0-8.0) Urine Specific [place] >=1.030 (1.000-1.030) Urine Protein Negative mg/dL (NEG-TRACE) Urine Glucose (UA) Negative mg/dL (NEG) Urine Ketones (Stick) Negative mg/dL (NEG) Urine Blood Negative (NEG) Urine Nitrite Negative (NEG) Urine Bilirubin Negative (NEG) Urine Urobilinogen Dipstick 0.2 mg/dL (0.2 mg/dL) Urine Leukocyte Esterase Negative (NEG) Urine RBC 0 /HPF (0-2) Urine WBC 0 /HPF (0-4) Urine Squamous Epithelial Cells Few /LPF Urine Bacteria 0 /HPF (0-FEW) Bedside Urine HCG, Qualitative Hcg negative (Negative) Test 09/22/20 04:58 White Blood Count 6.8 x10^3/uL (4.0-11.0) Red Blood Count 3.95 x10^6/uL (3.50-5.40) Hemoglobin 12.1 g/dL (12.0-15.5) Hematocrit 35.2 % (36.0-47.0) Mean Corpuscular Volume 89 fL (79-100) Mean Corpuscular Hemoglobin 31 pg (25-35) Mean Corpuscular Hemoglobin Concent 34 g/dL (31-37) Red Cell Distribution Width 13.5 % (11.5-14.5) Platelet Count 262 x10^3/uL (140-400) Neutrophils (%) (Auto) 66 % (31-73) Lymphocytes (%) (Auto) 26 % (24-48) Monocytes (%) (Auto) 7 % (0-9) Eosinophils (%) (Auto) 1 % (0-3) Basophils (%) (Auto) 1 % (0-3) Neutrophils # (Auto) 4.5 x10^3/uL (1.8-7.7) Lymphocytes # (Auto) 1.8 x10^3/uL (1.0-4.8) Monocytes # (Auto) 0.5 x10^3/uL (0.0-1.1) Eosinophils # (Auto) 0.1 x10^3/uL (0.0-0.7) Basophils # (Auto) 0.0 x10^3/uL (0.0-0.2) Laboratory Tests Test 09/22/20 04:48 09/22/20 04:58 Sodium Level 143 mmol/L (136-145) Potassium Level 3.8 mmol/L (3.5-5.1) Chloride Level 108 mmol/L (98-107) Carbon Dioxide Level 25 mmol/L (21-32) Anion Gap 10 (6-14) Blood Urea Nitrogen 11 mg/dL (7-20) Creatinine 0.7 mg/dL (0.6-1.0) Estimated GFR (Cockcroft-Gault) 90.5 BUN/Creatinine Ratio 16 (6-20) Glucose Level 82 mg/dL (70-99) Calcium Level 8.2 mg/dL (8.5-10.1) Total Bilirubin 0.4 mg/dL (0.2-1.0) Aspartate Amino Transf (AST/SGOT) 13 U/L (15-37) Alanine Aminotransferase (ALT/SGPT) 25 U/L (14-59) Alkaline Phosphatase 87 U/L (46-116) Total Protein 6.0 g/dL (6.4-8.2) Albumin 3.2 g/dL (3.4-5.0) Albumin/Globulin Ratio 1.1 (1.0-1.7) White Blood Count 6.8 x10^3/uL (4.0-11.0) Red Blood Count 3.95 x10^6/uL (3.50-5.40) Hemoglobin 12.1 g/dL (12.0-15.5) Hematocrit 35.2 % (36.0-47.0) Mean Corpuscular Volume 89 fL (79-100) Mean Corpuscular Hemoglobin 31 pg (25-35) Mean Corpuscular Hemoglobin Concent 34 g/dL (31-37) Red Cell Distribution Width 13.5 % (11.5-14.5) Platelet Count 262 x10^3/uL (140-400) Neutrophils (%) (Auto) 66 % (31-73) Lymphocytes (%) (Auto) 26 % (24-48) Monocytes (%) (Auto) 7 % (0-9) Eosinophils (%) (Auto) 1 % (0-3) Basophils (%) (Auto) 1 % (0-3) Neutrophils # (Auto) 4.5 x10^3/uL (1.8-7.7) Lymphocytes # (Auto) 1.8 x10^3/uL (1.0-4.8) Monocytes # (Auto) 0.5 x10^3/uL (0.0-1.1) Eosinophils # (Auto) 0.1 x10^3/uL (0.0-0.7) Basophils # (Auto) 0.0 x10^3/uL (0.0-0.2) Medications Current Medications Iohexol (Omnipaque 350 Mg/ml) 75 ml 1X ONCE IV Last administered on 09/21/20at 12:11; Start 09/21/20 at 12:15; Stop 09/21/20 at 12:16; Status DC Info (CONTRAST GIVEN -- Rx MONITORING) 1 each PRN DAILY PRN MC SEE COMMENTS; S tart 09/21/20 at 12:15; Stop 09/23/20 at 12:14 Amlodipine Besylate (Norvasc) 5 mg DAILY PO Last administered on 09/22/20at 10:29; Start 09/21/20 at 16:45; Stop 09/22/20 at 11:03; Status DC Amlodipine Besylate (Norvasc) 10 mg DAILY PO ; Start 09/23/20 at 09:00 Amlodipine Besylate (Norvasc) 5 mg 1X ONCE PO ; Start 09/22/20 at 13:45; Stop 09/22/20 at 13:56; Status DC Active Scripts Active Reported Atenolol 100 Mg Tablet 100 Mg PO DAILY Strattera (Atomoxetine Hcl) 80 Mg Capsule 80 Mg PO DAILY Levothyroxine Sodium 125 Mcg Tablet 125 Mcg PO DAILYAC Vitals/I & O Vital Sign - Last 24 Hours 09/21/20 09/21/20 09/21/20 09/21/20 14:19 14:49 15:19 17:53 Temp 98.9 98.9 Pulse 70 64 68 66 Resp 19 17 22 17 B/P (MAP) 149/67 (94) 144/67 (92) 121/56 (77) 141/67 (91) Pulse Ox 100 99 98 99 O2 Delivery Room Air Room Air Room Air Room Air 09/21/20 09/21/20 09/21/20 09/22/20 18:20 20:00 22:50 03:20 Temp 98.2 98.3 98.5 98.2 98.3 98.5 Pulse 65 66 67 Resp 16 18 16 B/P (MAP) 154/63 (93) 164/65 (98) 122/55 (77) Pulse Ox 99 99 98 O2 Delivery Room Air Room Air Room Air Room Air 09/22/20 09/22/20 09/22/20 09/22/20 07:00 08:00 10:29 11:00 Temp 98.2 98.2 98.2 98.2 Pulse 65 65 68 Resp 20 20 B/P (MAP) 178/72 (107) 178/72 167/81 (109) Pulse Ox 97 99 O2 Delivery Room Air Room Air Room Air Images Brain MRI without contrast. HISTORY: Dystonia. TECHNIQUE: Multiplanar, multisequence magnetic resonance imaging of the brain was performed without contrast. COMPARISON: CT dated 09/21/2020. FINDINGS: There is no restricted diffusion to suggest acute or subacute infarction. There is no susceptibility effect to suggest hemorrhage. There is no mass effect or midline shift. There is no hydrocephalus. No suspicious white matter lesion is seen. The orbits are unremarkable. The paranasal sinuses and mastoid air cells are unremarkable. There are normal flow voids within the cerebral vessels. There is no suspicious calvarial lesion. IMPRESSION: No acute intracranial finding. Justicifation of Admission Dx: Justifications for Admission: Justification of Admission Dx: N/A KELLEE ROSAS MD September 22, 2020 14:01
--- NOTE | 2020-09-22 14:17 | NUR ---
SS following up with discharge planning. Script for outpatient PT/OT received. SS met with pt and pt is requesting to come to [facility], [phone]; fax [phone]. SS phoned and faxed script and clinical to [facility]. Pt's RN notified.
[2020-09-22 15:00] VITALS: BP 162/72
[2020-09-22] MEDS ORDERED: hydroCHLOROthiazide 25 MG TABLET PO SCH (15:45)
[2020-09-22 15:47] VITALS: BP 201/97
[2020-09-22 17:45] VITALS: BP 155/89
[2020-09-22] MEDS ORDERED: HYDR-2145 PO (18:03)
--- NOTE | 2020-09-22 19:49 | NUR ---
Discharge Note: [facility] Discharge instructions and discharge home medications reviewed with Patient and a copy given. All questions have been answered and understanding verbalized. The following instructions and handouts were given: stroke, HTN IV discontinued, no complications. Patient discharged to home at approx 1945 with outpatient PT/OT. Script given to patient for PT/OT, see chart
[2020-09-23] MEDS ORDERED: amLODIPine BESYLATE 10 MG TABLET PO SCH (09:00)
== END 2020-09-22 19:45 | disposition home or self-care (01) | DRG 948 ==
LOC: ER 10:41 → ED HOLD 13:55 → 2 NORTH 18:05
PROVIDERS: ADMIT Family Medicine; ATTEND Family Medicine
DX: R53.1 Weakness (principal); E03.9 Hypothyroidism, unspecified; I10 Essential (primary) hypertension; M47.812 Spondylosis without myelopathy or radiculopathy, cervical region; M48.02 Spinal stenosis, cervical region; E66.9 Obesity, unspecified; Z79.899 Other long term (current) drug therapy; Z82.49 Family history of ischemic heart disease and other diseases of the circulatory system; Z87.891 Personal history of nicotine dependence; Z68.37 Body mass index [BMI] 37.0-37.9, adult
CPT/HCPCS: 36415; 70450; 70496; 70498; 70551; 80053; 81001; 81025; 83690; 84439; 84443; 84484; 85025; 93005; Q9967; 97116-GP; 97530-GO; 99285-25; G0378